=== PATIENT | male | born 1955 | race Caucasian/White ===

== ENCOUNTER 2023-11-16 09:50 | Outpatient (CLI) | payer OTHER | END 2023-11-16 09:51 | disposition home or self-care (01) | LOC: BICRAD 09:50 | PROVIDERS: ATTEND Family Medicine | DX: J44.9 Chronic obstructive pulmonary disease, unspecified (principal) | CPT/HCPCS: 71046 ==

== ENCOUNTER 2025-04-28 17:00 | Inpatient (IN) | payer MEDICARE, OTHER ==
[2025-04-28 17:45] LABS: #Basophils 0.04 10x3/uL (0.0-0.2); #Eosinophils 0.12 10x3/uL (0.0-0.7); #Monocytes 0.35 10x3/uL (0.11-0.59); #Neutrophils 4.39 10x3/uL (1.40-6.50); %Basophils 0.7 % (0.0-1.0); %Eosinophils 2.0 % (0.0-10.0); %Lymphocytes 17.7 % (21.0-51.0); %Monocytes 5.8 % (0.0-10.0); %Neutrophils 73.1 % (42.0-75.0); Hematocrit 50.2 % (42.0-52.0); Hemoglobin 15.8 g/dL (14.0-18.0); Mean Corpuscular Hemoglobin 29.2 pg (27.0-31.0); Mean Corpuscular Volume 92.8 fL (78.0-98.0); Platelet Count 199 10x3/uL (130-400); Red Blood Cell (RBC) Count 5.41 mill/uL (4.70-6.10); White Blood Cell (WBC) Count 6.00 10x3/uL (4.8-10.8)
[2025-04-28 18:00] LABS: ALT (SGPT) 13 U/L (Less than 45); AST (SGOT) 22 U/L (11-34); Albumin 4.4 g/dL (3.1-4.5); Alkaline Phosphatase 70 U/L (40-110); Anion Gap 14 mmol/L (10-20); BUN (Urea Nitrogen) 25 mg/dL (8.4-25.7); Bilirubin, Total 0.5 mg/dL (0.3-1.2); CK (CPK) 91 U/L (30-200); Calc. Creatinine Clearance 0 mL/min (70-130); Calcium 9.8 mg/dL (7.8-10.44); Carbon Dioxide 29 mmol/L (23-31); Chloride 105 mmol/L (98-107); Globulin 3.5 g/dL (2.4-3.5); Glucose 106 mg/dL (80-115); Potassium 4.6 mmol/L (3.5-5.1); Sodium 143 mmol/L (136-145)
[2025-04-28 19:06] LABS: Bacteria/HPF 4+ HPF (None Seen); CAUTI Indications for Culture Dysuria,urgency,freq; Glucose, Urine (Dipstick) Normal (Negative); Leukocyte 500 Leu/uL (Negative); Protein, Urine (Dipstick) 30 mg/dL (Neg-Trace); Specific Gravity, Urine 1.029 (1.002-1.036); WBC/HPF Greater than 50 HPF (0-3)
[2025-04-28 19:08] LABS: Urine Culture Reflex Yes Yes
[2025-04-28] MEDS ORDERED: cefTRIAXone (ROCEPHIN) 2 GM VIAL ONE (19:21)
[2025-04-28] MEDS ORDERED: Ondansetron PF 4 MG/2 ML Vial IVP PRN (21:15)
[2025-04-28] MEDS ORDERED: Calcium Carbonate 500 MG ChewTAB PO PRN (21:15)
[2025-04-28] MEDS ORDERED: Guaifenesin DM 100-10/5 ML UDCUP PO PRN (21:15)
[2025-04-28 22:20] VITALS: BMI 23.8
[2025-04-28] MEDS ORDERED: Acetaminophen 325 MG TAB ONE (22:54)
[2025-04-28] MEDS ORDERED: Cefepime 2 GM VIAL ONE (22:54)
[2025-04-28] MEDS: Acetaminophen 325 MG TAB PO SCH (22:58)
[2025-04-29] MEDS ORDERED: Acetaminophen 325 MG TAB ONE (03:09)
[2025-04-29 07:22] LABS: #Basophils 0.04 10x3/uL (0.0-0.2); #Eosinophils 0.10 10x3/uL (0.0-0.7); #Monocytes 0.37 10x3/uL (0.11-0.59); #Neutrophils 3.42 10x3/uL (1.40-6.50); %Basophils 0.8 % (0.0-1.0); %Eosinophils 1.9 % (0.0-10.0); %Lymphocytes 24.8 % (21.0-51.0); %Monocytes 7.0 % (0.0-10.0); %Neutrophils 65.1 % (42.0-75.0); Hematocrit 46.1 % (42.0-52.0); Hemoglobin 14.7 g/dL (14.0-18.0); Mean Corpuscular Hemoglobin 29.5 pg (27.0-31.0); Mean Corpuscular Volume 92.6 fL (78.0-98.0); Platelet Count 181 10x3/uL (130-400); Red Blood Cell (RBC) Count 4.98 mill/uL (4.70-6.10); White Blood Cell (WBC) Count 5.25 10x3/uL (4.8-10.8)
[2025-04-29 07:44] LABS: Anion Gap 12 mmol/L (10-20); BUN (Urea Nitrogen) 23 mg/dL (8.4-25.7); Calc. Creatinine Clearance 59 mL/min (70-130); Calcium 9.0 mg/dL (7.8-10.44); Carbon Dioxide 26 mmol/L (23-31); Chloride 105 mmol/L (98-107); Glucose 92 mg/dL (80-115); Potassium 4.0 mmol/L (3.5-5.1); Sodium 139 mmol/L (136-145)
[2025-04-29] MEDS: Enoxaparin 40 MG (0.4 mL) SYRINGE SC SCH (09:10)
[2025-04-29 09:15] LABS: %Eosinophils 2.1 % (0.0-10.0); %Lymphocytes 21.6 % (21.0-51.0); %Monocytes 7.6 % (0.0-10.0); %Neutrophils 67.5 % (42.0-75.0); Hematocrit 46.1 % (42.0-52.0); Hemoglobin 15.1 g/dL (14.0-18.0); Mean Corpuscular Hemoglobin 30.0 pg (27.0-31.0); Mean Corpuscular Volume 91.7 fL (78.0-98.0); Platelet Count 179 10x3/uL (130-400); Red Blood Cell (RBC) Count 5.03 mill/uL (4.70-6.10); White Blood Cell (WBC) Count 5.23 10x3/uL (4.8-10.8)
[2025-04-29 09:16] LABS: #Basophils 0.04 10x3/uL (0.0-0.2); #Eosinophils 0.11 10x3/uL (0.0-0.7); #Monocytes 0.40 10x3/uL (0.11-0.59); #Neutrophils 3.53 10x3/uL (1.40-6.50); %Basophils 0.8 % (0.0-1.0)
[2025-04-29] MEDS ORDERED: hydrALAZINE 20 MG/ML VIAL SLOW IVP PRN (10:13)
[2025-04-29] MEDS: FLU (Fluad Triv) 25-26 (65UP)PF 45 MCG/0.5 ML Syringe IM ONE (18:42)
[2025-04-29] MEDS: PNEUMOC 20-VAL CONJ-DIP CRM/PF 0.5 ML SYRINGE IM ONE (18:46)
[2025-04-30 07:46] LABS: #Basophils 0.04 10x3/uL (0.0-0.2); #Eosinophils 0.09 10x3/uL (0.0-0.7); #Monocytes 0.41 10x3/uL (0.11-0.59); #Neutrophils 4.35 10x3/uL (1.40-6.50); %Basophils 0.7 % (0.0-1.0); %Eosinophils 1.5 % (0.0-10.0); %Lymphocytes 15.6 % (21.0-51.0); %Monocytes 7.0 % (0.0-10.0); %Neutrophils 74.7 % (42.0-75.0); Hematocrit 46.5 % (42.0-52.0); Hemoglobin 14.9 g/dL (14.0-18.0); Mean Corpuscular Hemoglobin 29.5 pg (27.0-31.0); Mean Corpuscular Volume 92.1 fL (78.0-98.0); Platelet Count 167 10x3/uL (130-400); Red Blood Cell (RBC) Count 5.05 mill/uL (4.70-6.10); White Blood Cell (WBC) Count 5.83 10x3/uL (4.8-10.8)
[2025-04-30 08:02] LABS: Anion Gap 11 mmol/L (10-20); BUN (Urea Nitrogen) 26 mg/dL (8.4-25.7); Calc. Creatinine Clearance 62 mL/min (70-130); Calcium 8.7 mg/dL (7.8-10.44); Carbon Dioxide 26 mmol/L (23-31); Chloride 104 mmol/L (98-107); Glucose 78 mg/dL (80-115); Potassium 4.2 mmol/L (3.5-5.1); Sodium 137 mmol/L (136-145)
[2025-05-01 06:35] LABS: Anion Gap 13 mmol/L (10-20); BUN (Urea Nitrogen) 23 mg/dL (8.4-25.7); Calc. Creatinine Clearance 75 mL/min (70-130); Calcium 8.8 mg/dL (7.8-10.44); Carbon Dioxide 22 mmol/L (23-31); Chloride 107 mmol/L (98-107); Glucose 75 mg/dL (80-115); Potassium 3.7 mmol/L (3.5-5.1); Sodium 138 mmol/L (136-145)
[2025-05-01 08:32] VITALS: TEMP 98.1
[2025-05-01 11:58] VITALS: BP 130/77
== END 2025-05-01 13:52 | disposition home or self-care (01) | DRG 690 ==
LOC: ERS 17:00 → ERHOLD 20:20 → T4-B 04-29 08:45
PROVIDERS: ADMIT Internal Medicine; ATTEND Family Medicine
PROC: 3E02340 Introduction of Influenza Vaccine into Muscle, Percutaneous Approach (ICD-10-PCS; principal; 2025-04-28)
PROC: 3E0234Z Introduction of Serum, Toxoid and Vaccine into Muscle, Percutaneous Approach (ICD-10-PCS; 2025-04-28)
PROC: 3E03329 Introduction of Other Anti-infective into Peripheral Vein, Percutaneous Approach (ICD-10-PCS; 2025-04-28)
DX: N30.80 Other cystitis without hematuria (principal); N17.9 Acute kidney failure, unspecified; F17.210 Nicotine dependence, cigarettes, uncomplicated; M54.50 Low back pain, unspecified; E78.5 Hyperlipidemia, unspecified; F41.9 Anxiety disorder, unspecified; E55.9 Vitamin D deficiency, unspecified; N18.9 Chronic kidney disease, unspecified; L30.8 Other specified dermatitis; N40.0 Benign prostatic hyperplasia without lower urinary tract symptoms; Z87.440 Personal history of urinary (tract) infections; Z23 Encounter for immunization
CPT/HCPCS: 36415; 36416; 74176; 80048; 80053; 81001; 82550; 83036; 83605; 85025; 87040; 87077; 87086; 87186; 90471; 90653; 90677; 96374; G0009; J0692; J0696; J1650; J2543; J7030

== ENCOUNTER 2025-06-05 18:18 | Emergency (ER) | payer MEDICARE, OTHER ==
[2025-06-05 18:58] LABS: Bacteria/HPF None Seen HPF (None Seen); CAUTI Indications for Culture Alt mental st,lethar; Glucose, Urine (Dipstick) Normal (Negative); Leukocyte Negative Leu/uL (Negative); Protein, Urine (Dipstick) Negative (Neg-Trace); RBC/HPF 0-3 HPF (0-3); Specific Gravity, Urine 1.033 (1.002-1.036); WBC/HPF 0-3 HPF (0-3)
[2025-06-05 18:59] LABS: Urine Culture Reflex No No
[2025-06-05] MEDS ORDERED: Ondansetron PF 4 MG/2 ML Vial ONE (19:01)
[2025-06-05 19:39] LABS: #Basophils 0.05 10x3/uL (0.0-0.2); #Eosinophils 0.10 10x3/uL (0.0-0.7); #Monocytes 0.30 10x3/uL (0.11-0.59); #Neutrophils 3.62 10x3/uL (1.40-6.50); %Basophils 0.9 % (0.0-1.0); %Eosinophils 1.9 % (0.0-10.0); %Lymphocytes 22.6 % (21.0-51.0); %Monocytes 5.7 % (0.0-10.0); %Neutrophils 68.3 % (42.0-75.0); Hematocrit 50.8 % (42.0-52.0); Hemoglobin 15.9 g/dL (14.0-18.0); Mean Corpuscular Hemoglobin 29.0 pg (27.0-31.0); Mean Corpuscular Volume 92.7 fL (78.0-98.0); Platelet Count 207 10x3/uL (130-400); Red Blood Cell (RBC) Count 5.48 mill/uL (4.70-6.10); White Blood Cell (WBC) Count 5.30 10x3/uL (4.8-10.8)
[2025-06-05 19:54] LABS: ALT (SGPT) 20 U/L (Less than 45); AST (SGOT) 24 U/L (11-34); Albumin 4.2 g/dL (3.1-4.5); Alkaline Phosphatase 71 U/L (40-110); Anion Gap 14 mmol/L (10-20); BUN (Urea Nitrogen) 23 mg/dL (8.4-25.7); Bilirubin, Total 0.4 mg/dL (0.3-1.2); Calc. Creatinine Clearance 0 mL/min (70-130); Calcium 9.3 mg/dL (7.8-10.44); Carbon Dioxide 29 mmol/L (23-31); Chloride 106 mmol/L (98-107); Globulin 3.4 g/dL (2.4-3.5); Glucose 97 mg/dL (80-115); Magnesium 2.5 mg/dL (1.6-2.6); Potassium 4.0 mmol/L (3.5-5.1); Sodium 145 mmol/L (136-145)
== END 2025-06-05 21:07 | disposition home or self-care (01) ==
LOC: ERS 18:18
DX: R33.9 Retention of urine, unspecified (principal); I10 Essential (primary) hypertension; F17.210 Nicotine dependence, cigarettes, uncomplicated; Z55.6 Problems related to health literacy
CPT/HCPCS: 51702; 80053; 81001; 83605; 83735; 85025; 87040; 87086; 93005; 96374; 96375; J2405; J3010

== ENCOUNTER 2025-06-06 09:33 | Emergency (ER) | payer MEDICARE, OTHER ==
[2025-06-06 10:51] LABS: Bacteria/HPF None Seen HPF (None Seen); CAUTI Indications for Culture Pelvic or flank pain; Glucose, Urine (Dipstick) Normal (Negative); Leukocyte 75 Leu/uL (Negative); Protein, Urine (Dipstick) Negative (Neg-Trace); Specific Gravity, Urine 1.014 (1.002-1.036)
[2025-06-06 10:52] LABS: Urine Culture Reflex No No
== END 2025-06-06 11:42 | disposition home or self-care (01) ==
LOC: ERS 09:33
DX: N30.90 Cystitis, unspecified without hematuria (principal); I10 Essential (primary) hypertension; F17.210 Nicotine dependence, cigarettes, uncomplicated
CPT/HCPCS: 51798; 81001; 99283